=== PATIENT | male | born 1980 | race Two or more races ===

== ENCOUNTER 2016-07-28 16:47 | Inpatient (IN) | payer BC ==
[~2016-07-28] VITALS: Ht 170.2 cm; Wt 82.6 kg
[2016-07-28] MEDS ORDERED: NOREPINEPHRIN PREMIX 250 ML IV PRN (17:15)
[2016-07-28] MEDS ORDERED: IV NORMAL SALINE 500ML BAG 500 ML IV PRN (17:15)
[2016-07-28] MEDS: IV NORMAL SALINE 1000ML BAG 1,000 ML IV SCH ×3 (17:29→18:20)
[2016-07-28] MEDS ORDERED: IBUPROFEN 800 MG TABLET. PO ONE (17:30)
[2016-07-28] MEDS ORDERED: ACETAMINOPHEN 500 MG TABLET PO ONE (17:30)
[2016-07-28 17:44] LABS: CALCIUM 9.2 mg/dL (8.5-10.1); GFR 85.5; POTASSIUM 3.8 mmol/L (3.5-5.1)
[2016-07-28 17:55] LABS: BASO # 0.1 x10^3/uL (0.0-0.2); BASO % 1 % (0-3); EOS % 3 % (0-3); HEMATOCRIT 44.5 % (39.0-53.0); HEMOGLOBIN 15.4 g/dL (13.0-17.5); LYMPH # 1.9 x10^3/uL (1.0-4.8); LYMPH % 13 % (24-48); MEAN CORPUSCULAR HEMOGLOBIN 30 pg (25-35); MEAN CORPUSCULAR HGB CONC 35 g/dL (31-37); MEAN CORPUSCULAR VOLUME 88 fL (79-100); MONO % 6 % (0-9); NEUT % 78 % (31-73); PLATELET COUNT 312 x10^3/uL (140-400); RED BLOOD COUNT 5.08 x10^6/uL (4.30-5.70); RED CELL DISTRIBUTION WIDTH 12.3 % (11.5-14.5); WHITE BLOOD COUNT 14.8 x10^3/uL (4.0-11.0)
[2016-07-28 17:58] LABS: CKMB MASS < 0.5 ng/mL (0.0-3.6); CREATINE KINASE 154 U/L (39-308)
[2016-07-28] MEDS ORDERED: IV NORMAL SALINE 1000ML BAG 1,000 ML IV ONE ×2 (19:00→21:30)
--- NOTE | 2016-07-28 19:27 | PHYS DOC ---
Past Medical History Past Medical History: No Pertinent History Past Surgical History: No Surgical History Alcohol Use: None Drug Use: None Adult General Chief Complaint Chief Complaint: CHEST PAIN-NON CARDIAC NATURE HPI HPI Patient is a 36 year old male with no significant medical history who presents today with multiple complaints here and patient is complaining of generalized weakness, body aches, sore throat, bilateral ear pain with the ringing, headache , 7 out of 10 anterior chest pain on deep breaths, patient states all his symptoms began today. Patient denies his chest pain radiating anywhere. Patient is also complaining of subjective fevers. Review of Systems Review of Systems Constitutional: Generalized weakness Eyes: Denies change in visual acuity, redness, or eye pain [] HENT: Bilateral ear pain with the ringing and sore throat [] Respiratory: Denies cough or shortness of breath [] Cardiovascular: Anterior chest pain GI: Denies abdominal pain, nausea, vomiting, bloody stools or diarrhea [] : Denies dysuria or hematuria [] Musculoskeletal: Denies back pain or joint pain [] Integument: Denies rash or skin lesions [] Neurologic: Denies headache, focal weakness or sensory changes [] Endocrine: Denies polyuria or polydipsia [] Current Medications Current Medications Current Medications Medications (Trade) Dose Ordered Sig/Maciej Start Time Stop Time Status Last Admin Dose Admin Acetaminophen (Tylenol) 1,000 mg 1X ONCE 07/28/16 17:30 07/28/16 17:31 DC 07/28/16 17:29 1,000 MG Dobutamine HCl/ Dextrose 250 ml @ 0 mls/hr CONT PRN 07/28/16 17:15 Ibuprofen (Motrin) 800 mg 1X ONCE 07/28/16 17:30 07/28/16 17:31 DC 07/28/16 17:29 800 MG Levofloxacin/ Dextrose 100 ml @ 100 mls/hr 1X ONCE 07/28/16 19:00 07/28/16 19:59 DC 07/28/16 18:53 100 MLS/HR Norepinephrine Bitartrate 250 ml @ 0 mls/hr CONT PRN 07/28/16 17:15 Sodium Chloride 1,000 ml @ 1,000 mls/hr 1X ONCE 07/28/16 19:00 07/28/16 19:59 DC 07/28/16 18:53 1,000 MLS/HR Allergies Allergies Allergies Coded Allergies Type Severity Reaction Last Updated Verified No Known Drug Allergies 07/28/16 No Physical Exam Physical Exam Constitutional: Well developed, well nourished, no acute distress, non-toxic appearance. [] HENT: Normocephalic, atraumatic, bilateral external ears normal, oropharynx moist, no oral exudates, nose normal. [] Bilateral TM are moderately injected. Eyes: PERRLA, EOMI, conjunctiva normal, no discharge. [] Neck: Normal range of motion, no tenderness, supple, no stridor. [] Cardiovascular:Heart rate regular rhythm, no murmur no gallops, no rubs, reproducible chest pain on deep breaths Lungs & Thorax: Bilateral breath sounds clear to auscultation [] Abdomen: Bowel sounds normal, soft, no tenderness, no masses, no pulsatile masses. [] Skin: Warm, dry, no erythema, no rash. [] Back: No tenderness, no CVA tenderness. [] Extremities: No tenderness, no cyanosis, no clubbing, ROM intact, no edema. [] Neurologic: Alert and oriented X 3, normal motor function, normal sensory function, no focal deficits noted. [] Psychologic: Affect normal, judgement normal, mood normal. [] Current Patient Data Vital Signs Vital Signs Date Time Temp Pulse Resp B/P (MAP) Pulse Ox O2 Delivery O2 Flow Rate FiO2 07/28/16 20:24 106 20 116/66 (83) 94 Room Air 07/28/16 18:54 100.6 100.6 Lab Values Laboratory Tests Test 07/28/16 17:05 07/28/16 17:10 07/28/16 19:27 White Blood Count 14.8 x10^3/uL (4.0-11.0) H Red Blood Count 5.08 x10^6/uL (4.30-5.70) Hemoglobin 15.4 g/dL (13.0-17.5) Hematocrit 44.5 % (39.0-53.0) Mean Corpuscular Volume 88 fL (79-100) Mean Corpuscular Hemoglobin 30 pg (25-35) Mean Corpuscular Hemoglobin Concent 35 g/dL (31-37) Red Cell Distribution Width 12.3 % (11.5-14.5) Platelet Count 312 x10^3/uL (140-400) Neutrophils (%) (Auto) 78 % (31-73) H Lymphocytes (%) (Auto) 13 % (24-48) L Monocytes (%) (Auto) 6 % (0-9) Eosinophils (%) (Auto) 3 % (0-3) Basophils (%) (Auto) 1 % (0-3) Neutrophils # (Auto) 11.5 x10^3uL (1.8-7.7) H Lymphocytes # (Auto) 1.9 x10^3/uL (1.0-4.8) Monocytes # (Auto) 0.9 x10^3/uL (0.0-1.1) Eosinophils # (Auto) 0.4 x10^3/uL (0.0-0.7) Basophils # (Auto) 0.1 x10^3/uL (0.0-0.2) Sodium Level 136 mmol/L (136-145) Potassium Level 3.8 mmol/L (3.5-5.1) Chloride Level 98 mmol/L (98-107) Carbon Dioxide Level 25 mmol/L (21-32) Anion Gap 13 (6-14) Blood Urea Nitrogen 14 mg/dL (8-26) Creatinine 1.0 mg/dL (0.7-1.3) Estimated GFR (Cockcroft-Gault) 85.5 Glucose Level 101 mg/dL (70-99) H Calcium Level 9.2 mg/dL (8.5-10.1) Creatine Kinase 154 U/L (39-308) Creatine Kinase MB (Mass) < 0.5 ng/mL (0.0-3.6) Creatine Kinase MB Relative Index % (0-4) Troponin I Quantitative < 0.017 ng/mL (0.000-0.055) Procalcitonin < 0.10 ng/mL (0.00-0.10) Lactic Acid Level 1.9 mmol/L (0.4-2.0) Urine Collection Type Unknown Urine Color Yellow Urine Clarity Clear Urine pH 6.5 Urine Specific [place] <=1.005 Urine Protein Negative mg/dL (NEG-TRACE) Urine Glucose (UA) Negative mg/dL (NEG) Urine Ketones (Stick) Negative mg/dL (NEG) Urine Blood Trace (NEG) Urine Nitrite Negative (NEG) Urine Bilirubin Negative (NEG) Urine Urobilinogen Dipstick 0.2 mg/dL (0.2 mg/dL) Urine Leukocyte Esterase Negative (NEG) Urine RBC Occ /HPF (0-2) Urine WBC 0 /HPF (0-4) Urine Squamous Epithelial Cells Occ /LPF Urine Bacteria 0 /HPF (0-FEW) Laboratory Tests 07/28/16 17:05 Laboratory Tests 07/28/16 17:05 EKG EKG [] Radiology/Procedures Radiology/Procedures [] Course & Med Decision Making Course & Med Decision Making Pertinent Labs and Imaging studies reviewed. (See chart for details) This is a 36-year-old male patient who presents to the ED today with multiple complaints including bilateral ear pain with the ringing, sore throat, general weakness, body aches, chest pain, and headache. Vitals on arrival temperature was 100.2 heart rate 122 respiration 18, O2 sats 99% room air, heart pressure 141/92. Patient was started on the sepsis protocol with labs drawn including blood cultures and IV fluids. He was given Tylenol and Motrin. Chest x-ray interpreted by Dr. Nazario is negative for any acute findings. CBC with a WBC of 14.8. BMP with no acute findings. CK-MB troponin and lactic acid are normal. 16:[address] Nazario Sinus tachycardia, HR 122, QRS interval 86 no STEMI Patient continued to be tachycardic despite receiving 2 L of IV fluid. His temperature went up to 100.6 despite getting Tylenol and Motrin. We started him on Levaquin. He was also continued on IV fluid. 20:[address] Story who was accepted patient for admission. 20:[address] Carpenter who accepted patient for infectious disease. Dragon Disclaimer Dragon Disclaimer This electronic medical record was generated, in whole or in part, using a voice recognition dictation system. Departure Departure Impression: Primary Impression: Sepsis Additional Impressions: Fever Tachycardia Disposition: 09 ADMITTED INPATIENT Condition: STABLE Referrals: NO PCP (PCP) Problem Qualifiers Primary Impression: Sepsis Sepsis type: sepsis due to unspecified organism Qualified Codes: A41.9 - Sepsis, unspecified organism Additional Impressions: Fever Fever type: unspecified Qualified Codes: R50.9 - Fever, unspecified MUTUNGA,JASBIR FIELD SUPPORT REP Jul 28, 2016 19:27
[2016-07-28 19:34] LABS: BILIRUBIN,URINE NEGATIVE (NEG); GLUCOSE,URINE NEGATIVE (NEG); NITRITE,URINE NEGATIVE (NEG); PH,URINE 6.5; PROTEIN,URINE NEGATIVE (NEG-TRACE); UROBILINOGEN,URINE 0.2 mg/dL (0.2 mg/dL)
[2016-07-28 19:47] LABS: BACTERIA,URINE 0 /HPF (0-FEW); RBC,URINE OCC /HPF (0-2); SQUAMOUS EPITHELIAL CELL,UR OCC /LPF; WBC,URINE 0 /HPF (0-4)
[2016-07-28] MEDS ORDERED: ACETAMINOPHEN 325 MG TABLET. PO PRN (21:30)
[2016-07-28] MEDS ORDERED: MORPHINE SULFATE 2 MG/ML DISP.SYRIN. IV PRN (21:30)
[2016-07-28] MEDS ORDERED: IBUPROFEN 800 MG TABLET. PO PRN (21:30)
[2016-07-28] MEDS ORDERED: ONDANSETRON PF 4 MG/2 ML VIAL. IV PRN (21:30)
[2016-07-28] MEDS ORDERED: KETOROLAC TROMETHAMINE 30 MG/ML INJ. IV ONE (22:00)
[2016-07-28 22:04] LABS: OBC FLU VALID
[2016-07-28 22:17] VITALS: BP 129/80
[2016-07-29 03:16] VITALS: BP 108/74
--- NOTE | 2016-07-29 04:13 | ACF ---
Admission Forms Criteria SEPSIS and OTHER FEBRILE ILLNESS, W/O FOCAL INFECTION Clinical Indications for Admission to Inpatient Care ( Place 'X' for any and all applicable criteria): Admission is indicated for ANY ONE of the following (1)(2)(3)(4): [ ] I. Bacteremia [ ]II. Suspected or identified specific infection requiring hospitalization (eg, meningitis, endocarditis) [ ]III. Hemodynamic instability [ ]IV. Altered mental status [ ]V. Failure or unavailability of outpatient antimicrobial treatment [ ]. Hypoxemia [ ]VII. Seizures [ ]VIII. High-risk febrile neutropenia [ ]IX. Need for parenteral antibiotic in patient who is likely to abuse vascular access device (eg, injection drug user) [A](7) [ ]X. Temperature greater than 104.9 degrees F (40.5 degrees C) (oral) [X]XI. Inpatient admission required rather than observation care because of ANY ONE of the following: [ ]1) Specific infection identified that is too severe for outpatient treatment or observation care trial [ ]2) Metabolic disorder (eg, hypoglycemia, hyperglycemia, metabolic acidosis) that is severe or persistent [ ]3) Temperature greater than 103.1 degrees F (39.5 degrees C) ( oral) that is not responsive to observation care treatment [ ]4) IV fluid to replace significant ongoing (eg, for over 24 hours) losses (> 3 L/m2 per day) [ ]5) Supplemental oxygen or respiratory treatments for over 24 hours that is performable only in acute inpatient setting [ ]6) Parenteral nutrition regimen need that must be implemented on inpatient basis [ ]7) Strict or protective (eg, laminar flow) isolation [X]8) Other condition, treatment or monitoring requiring inpatient admission Extended stay beyond goal length of stay may be needed for(1)(3) [ ]a) Sepsis or septic shock(22) [ ]b) Positive blood cultures [ ]c) Insufficient oral intake [ ]d) High-risk febrile neutropenia(29)(30) [ ]e) Continued fever and clinical instability [ ]f) Clinically active comorbid illness (e.g,heart failure, renal failure , diabetes) The original [facility] content created by Sangeetha Montano has been revised. The portions of the content which have been revised are identified through the use of italic text or in bold, and Sangeetha Montano has neither reviewed nor approved the modified material. All other unmodified content is copyright [facility]. Please see references footnoted in the original [facility] edition 2016 Admission Criteria Met?: Yes MICHAEL ESCAMILLA Jul 29, 2016 04:12
[2016-07-29 05:04] LABS: BASO # 0.1 x10^3/uL (0.0-0.2); BASO % 1 % (0-3); EOS % 4 % (0-3); HEMATOCRIT 41.6 % (39.0-53.0); HEMOGLOBIN 14.4 g/dL (13.0-17.5); LYMPH # 2.2 x10^3/uL (1.0-4.8); LYMPH % 21 % (24-48); MEAN CORPUSCULAR HEMOGLOBIN 31 pg (25-35); MEAN CORPUSCULAR HGB CONC 35 g/dL (31-37); MEAN CORPUSCULAR VOLUME 89 fL (79-100); MONO % 9 % (0-9); NEUT % 65 % (31-73); PLATELET COUNT 256 x10^3/uL (140-400); RED BLOOD COUNT 4.68 x10^6/uL (4.30-5.70); RED CELL DISTRIBUTION WIDTH 12.5 % (11.5-14.5); WHITE BLOOD COUNT 10.3 x10^3/uL (4.0-11.0)
[2016-07-29 05:33] LABS: CALCIUM 8.2 mg/dL (8.5-10.1); CREATININE 0.9 mg/dL (0.7-1.3); GFR 96.6; POTASSIUM 3.8 mmol/L (3.5-5.1)
--- NOTE | 2016-07-29 06:34 | EKG ---
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
[2016-07-29 07:00] VITALS: BP 134/86
[2016-07-29 07:25] LABS: NEGATIVE OBC STREP NEG; POSITIVE OBC STREP POS
[2016-07-29] MEDS ORDERED: IPRATRPIUM/ALBUTEROL 0.5/2.5MG 3 ML NEBU. NEB SCH (08:00)
--- NOTE | 2016-07-29 08:09 | RAD ---
Indication cough. Chest pain. A single view of the chest was obtained. No prior imaging is available. Heart size is normal. The mediastinum is normal. No definite acute parenchymal infiltrate is seen. There is a density at the left lung base. This likely reflects a pericardial fat pad. A focus of scarring or atelectasis is felt less likely.. There is no significant pleural fluid. There is no pneumothorax. IMPRESSION: No acute or focal process is seen in the chest. Probable pericardial fat pad.
--- NOTE | 2016-07-29 08:24 | PDOC ---
Infectious Disease Note Vital Sign Vital Signs Vital Signs Date Time Temp Pulse Resp B/P (MAP) Pulse Ox O2 Delivery O2 Flow Rate FiO2 07/29/16 07:40 96 Room Air 07/29/16 07:00 97.9 86 18 134/86 (102) 97.9 Labs Lab Laboratory Tests Test 07/28/16 17:05 07/28/16 17:10 07/28/16 17:55 07/28/16 19:27 White Blood Count 14.8 x10^3/uL (4.0-11.0) Red Blood Count 5.08 x10^6/uL (4.30-5.70) Hemoglobin 15.4 g/dL (13.0-17.5) Hematocrit 44.5 % (39.0-53.0) Mean Corpuscular Volume 88 fL (79-100) Mean Corpuscular Hemoglobin 30 pg (25-35) Mean Corpuscular Hemoglobin Concent 35 g/dL (31-37) Red Cell Distribution Width 12.3 % (11.5-14.5) Platelet Count 312 x10^3/uL (140-400) Neutrophils (%) (Auto) 78 % (31-73) Lymphocytes (%) (Auto) 13 % (24-48) Monocytes (%) (Auto) 6 % (0-9) Eosinophils (%) (Auto) 3 % (0-3) Basophils (%) (Auto) 1 % (0-3) Neutrophils # (Auto) 11.5 x10^3uL (1.8-7.7) Lymphocytes # (Auto) 1.9 x10^3/uL (1.0-4.8) Monocytes # (Auto) 0.9 x10^3/uL (0.0-1.1) Eosinophils # (Auto) 0.4 x10^3/uL (0.0-0.7) Basophils # (Auto) 0.1 x10^3/uL (0.0-0.2) Sodium Level 136 mmol/L (136-145) Potassium Level 3.8 mmol/L (3.5-5.1) Chloride Level 98 mmol/L (98-107) Carbon Dioxide Level 25 mmol/L (21-32) Anion Gap 13 (6-14) Blood Urea Nitrogen 14 mg/dL (8-26) Creatinine 1.0 mg/dL (0.7-1.3) Estimated GFR (Cockcroft-Gault) 85.5 Glucose Level 101 mg/dL (70-99) Calcium Level 9.2 mg/dL (8.5-10.1) Creatine Kinase 154 U/L (39-308) Creatine Kinase MB (Mass) < 0.5 ng/mL (0.0-3.6) Creatine Kinase MB Relative Index % (0-4) Troponin I Quantitative < 0.017 ng/mL (0.000-0.055) Procalcitonin < 0.10 ng/mL (0.00-0.10) Lactic Acid Level 1.9 mmol/L (0.4-2.0) Group A Streptococcus Rapid Negative (NEGATIVE) Urine Collection Type Unknown Urine Color Yellow Urine Clarity Clear Urine pH 6.5 Urine Specific [place] <=1.005 Urine Protein Negative mg/dL (NEG-TRACE) Urine Glucose (UA) Negative mg/dL (NEG) Urine Ketones (Stick) Negative mg/dL (NEG) Urine Blood Trace (NEG) Urine Nitrite Negative (NEG) Urine Bilirubin Negative (NEG) Urine Urobilinogen Dipstick 0.2 mg/dL (0.2 mg/dL) Urine Leukocyte Esterase Negative (NEG) Urine RBC Occ /HPF (0-2) Urine WBC 0 /HPF (0-4) Urine Squamous Epithelial Cells Occ /LPF Urine Bacteria 0 /HPF (0-FEW) Test 07/28/16 21:39 07/28/16 23:13 07/29/16 03:45 Influenza Type A Antigen Negative (NEGATIVE) Influenza Type B Antigen Negative (NEGATIVE) Lactic Acid Level 2.1 mmol/L (0.4-2.0) White Blood Count 10.3 x10^3/uL (4.0-11.0) Red Blood Count 4.68 x10^6/uL (4.30-5.70) Hemoglobin 14.4 g/dL (13.0-17.5) Hematocrit 41.6 % (39.0-53.0) Mean Corpuscular Volume 89 fL (79-100) Mean Corpuscular Hemoglobin 31 pg (25-35) Mean Corpuscular Hemoglobin Concent 35 g/dL (31-37) Red Cell Distribution Width 12.5 % (11.5-14.5) Platelet Count 256 x10^3/uL (140-400) Neutrophils (%) (Auto) 65 % (31-73) Lymphocytes (%) (Auto) 21 % (24-48) Monocytes (%) (Auto) 9 % (0-9) Eosinophils (%) (Auto) 4 % (0-3) Basophils (%) (Auto) 1 % (0-3) Neutrophils # (Auto) 6.7 x10^3uL (1.8-7.7) Lymphocytes # (Auto) 2.2 x10^3/uL (1.0-4.8) Monocytes # (Auto) 1.0 x10^3/uL (0.0-1.1) Eosinophils # (Auto) 0.4 x10^3/uL (0.0-0.7) Basophils # (Auto) 0.1 x10^3/uL (0.0-0.2) Sodium Level 143 mmol/L (136-145) Potassium Level 3.8 mmol/L (3.5-5.1) Chloride Level 107 mmol/L (98-107) Carbon Dioxide Level 28 mmol/L (21-32) Anion Gap 8 (6-14) Blood Urea Nitrogen 13 mg/dL (8-26) Creatinine 0.9 mg/dL (0.7-1.3) Estimated GFR (Cockcroft-Gault) 96.6 Glucose Level 87 mg/dL (70-99) Calcium Level 8.2 mg/dL (8.5-10.1) Troponin I Quantitative < 0.017 ng/mL (0.000-0.055) Objective Assessment Fever Leukocytosis Body ache ? early sepsis Plan Plan of Care fluids levaquin supportive care check cultures TAM GASTON MD Jul 29, 2016 08:24
[2016-07-29 11:00] VITALS: BP 125/82
[2016-07-29] MEDS ORDERED: IPRATRPIUM/ALBUTEROL 0.5/2.5MG 3 ML NEBU. NEB PRN (12:00)
--- NOTE | 2016-07-29 12:21 | CONS ---
DATE OF CONSULTATION: 07/29/2016 REQUESTING PHYSICIAN: Jenelle Story DO. REASON FOR CONSULTATION: Early sepsis. HISTORY OF PRESENT ILLNESS: This is a 36-year-old gentleman who came in with 1-day history of not feeling well. In the morning, he woke up with sore throat, body ache, he still went to work and then it got worse progressively. The patient had fever when he came in. The patient had leukocytosis, slight lactic acidosis. The patient was admitted. Fluids and Levaquin was started. The patient had a fever up to 100.6, leukocytosis, slight lactic acidosis and admitted as I mentioned. The patient this morning is eating; he is feeling better. Denies any nausea, vomiting, denies any diarrhea, denies any headache, visual symptoms. Denies any chest pain, shortness of breath, abdominal pain, urinary symptoms. PAST MEDICAL HISTORY: Unremarkable. SOCIAL HISTORY: Negative for smoking, alcohol, illicit drug use. ALLERGIES: No known drug allergies. CURRENT MEDICATIONS: The patient is on levofloxacin. REVIEW OF SYSTEMS: As per HPI, all other systems reviewed are negative. SOCIAL HISTORY: The patient denies any tick bite, mosquito bite, does not do anything out door. PHYSICAL EXAMINATION: GENERAL: Alert and oriented gentleman, not in distress. VITAL SIGNS: Stable with a T-max 100.6. Now he has been afebrile. HEENT: NAD. NECK: Supple, no JVP, no lymphadenopathy. LUNGS: Clear. HEART: S1, S2 regular. ABDOMEN: Benign. EXTREMITIES: No edema, cyanosis. SKIN: Unremarkable. NEUROLOGIC: The patient is neurologically intact. LABORATORY DATA: White count on admission was 14.8, now down to 10.3. BUN and creatinine is negative. Urinalysis unremarkable. Influenza screen is negative. Group A strep is negative. Chest x-ray is negative. IMPRESSION: 1. Fever. 2. Leukocytosis. 3. Slight lactic acidosis. 4. Body aches. PLAN: Recommend fluids, levofloxacin. The patient can soon be discharged. We will check the cultures and ____. Thank you very much, Dr. Story for giving me the opportunity to participate in this patient's care. TAM GASTON MD DR: DAKOTAH/az JOB#: [id number] / [id number]
[2016-07-29 15:00] VITALS: BP 127/80
[2016-07-29] MEDS ORDERED: LEVO500T59 PO (16:09)
--- NOTE | 2016-07-29 22:23 | SSS ---
ADMIT DATE: 07/29/2016 CHIEF COMPLAINT: Noncardiac chest pain. HISTORY OF PRESENT ILLNESS: The patient is a 36-year-old gentleman without any significant past medical history who presented to the Emergency Room with generalized weakness, myalgia, sore throat, bilateral ear pain and ringing as well as headaches 08/30. He also complained of anterior chest pain, worsened on deep breathing. All symptoms essentially started today, accompanied by subjective fevers. He denies any nausea, vomiting or other GI symptoms. PAST MEDICAL HISTORY: None. FAMILY HISTORY: Noncontributory. SOCIAL HISTORY: Lives with his family. No toxic habits. ALLERGIES: No known drug allergies. HOME MEDICATIONS: None. REVIEW OF SYSTEMS: As per HPI. This morning, he actually feels much improved. Denies any further chest pain, dizziness has resolved, minimal soreness in the throat, but otherwise feels fine. Rest of organ system review is negative. PHYSICAL EXAMINATION: VITAL SIGNS: From today show a blood pressure of 127/80, heart rate of 85, respiratory rate at 18. He is afebrile. GENERAL: This is a well-nourished, well-developed 36-year-old gentleman, alert and oriented, in no acute distress. HEENT: Shows no scleral icterus. Oral mucosa is pink and moist without any erythema noted in the throat. NECK: Supple without any lymphadenopathy. LUNGS: Clear. HEART: Has regular rate and rhythm. ABDOMEN: Has positive bowel sounds, soft, nontender. EXTREMITIES: Show no edema. SKIN: Warm, soft and dry without any rash. LABORATORY DATA: CBC from this morning shows WBC of 10.3, compared to 14.8 last evening, hemoglobin at 14.4, platelets at 256. Chemistries: Normal BUN, creatinine and electrolytes. Serology for flu A and B was negative. IMAGING STUDIES: Chest x-ray obtained in the Emergency Room reveals no acute focal process in the chest. HOSPITAL COURSE: The patient is a 36-year-old gentleman presenting with what appears to be a viral syndrome. He is now much improved. He is almost asymptomatic. I will discharge him from the hospital. Discussed use of antibiotics with him. We will give him 4 more days of Levaquin for potential bacterial superinfection. No other medications indicated at this time. A work excuse until next Tuesday was given. DISCHARGE DATE: 07/29/2016. DISCHARGE DIAGNOSIS: Viral syndrome DISCHARGE DISPOSITION: To home. DISCHARGE CONDITION: Improved. DISCHARGE MEDICATIONS: Please refer to MAR. DISCHARGE INSTRUCTIONS: The patient will follow up with PCP in 1-2 weeks. YANG CHARLES MD DR: UR/nts JOB#: [id number] / [id number] MARIELA
== END 2016-07-29 17:07 | disposition home or self-care (01) | DRG 872 ==
LOC: ER 16:47 → 5 NORTH 20:39
PROVIDERS: ADMIT Internal Medicine; ATTEND Internal Medicine
DX: A41.9 Sepsis, unspecified organism (principal); B34.9 Viral infection, unspecified; R00.0 Tachycardia, unspecified; R07.89 Other chest pain
CPT/HCPCS: 36415; 71010; 80048; 81001; 82553; 83605; 84145; 84484; 85027; 87040; 87070; 87804; 87880; 93005; 94250; 94640; 94760; 96365; J1885; J1956; J7030; J7620; 99285-25

== ENCOUNTER 2018-08-21 21:09 | Emergency (ER) | payer BC ==
[~2018-08-21] VITALS: Ht 170.2 cm; Wt 85.7 kg
[~2018-08-21 21:09] MED LIST: LEVO500T59 PO
--- NOTE | 2018-08-21 21:47 | PHYS DOC ---
Past Medical History Past Medical History: No Pertinent History Past Surgical History: No Surgical History Alcohol Use: None Drug Use: None Adult General Chief Complaint Chief Complaint: ANKLE PROBLEM HPI HPI Patient is a 38 year old male who presents with plain soccer tonight when he was running and stepped on the ball causing his right ankle supinate rolling ankle outward. Patient also has pain at lower tib fib. Pain is sharp and aches at a 10/10. Review of Systems Review of Systems Constitutional: Denies fever or chills [] Eyes: Denies change in visual acuity, redness, or eye pain [] HENT: Denies nasal congestion or sore throat [] Respiratory: Denies cough or shortness of breath [] Cardiovascular: No additional information not addressed in HPI [] GI: Denies abdominal pain, nausea, vomiting, bloody stools or diarrhea [] : Denies dysuria or hematuria [] Musculoskeletal: Right ankle and tib fib pain. Denies back pain or joint pain [] Integument: Denies rash or skin lesions [] Neurologic: Denies headache, focal weakness or sensory changes [] Endocrine: Denies polyuria or polydipsia [] All other systems were reviewed and found to be within normal limits, except as documented in this note. Current Medications Current Medications Current Medications Medications (Trade) Dose Ordered Sig/Maciej Start Time Stop Time Status Last Admin Dose Admin Acetaminophen/ Hydrocodone Bitart (Lortab 5/325) 1 tab 1X ONCE 08/21/18 22:15 08/21/18 22:16 DC 08/21/18 21:41 1 TAB Ibuprofen (Motrin) 600 mg 1X ONCE 08/21/18 22:15 08/21/18 22:16 DC 08/21/18 21:41 600 MG Allergies Allergies Allergies Coded Allergies Type Severity Reaction Last Updated Verified No Known Drug Allergies 07/28/16 No Physical Exam Physical Exam Constitutional: Well developed, well nourished, no acute distress, non-toxic appearance. [] HENT: Normocephalic, atraumatic, bilateral external ears normal, oropharynx moist, no oral exudates, nose normal. [] Eyes: PERRLA, EOMI, conjunctiva normal, no discharge. [] Neck: Normal range of motion, no tenderness, supple, no stridor. [] Cardiovascular:Heart rate regular rhythm, no murmur [] Lungs & Thorax: Bilateral breath sounds clear to auscultation [] Abdomen: Bowel sounds normal, soft, no tenderness, no masses, no pulsatile masses. [] Skin: Warm, dry, no erythema, no rash. [] Back: No tenderness, no CVA tenderness. [] Extremities: Right fibula and right ankle tenderness, no cyanosis, no clubbing, Right ankle ROM not intact, 3+ edema to right ankle. swelling and tenderness to lower portion of fibula. [] Neurologic: Alert and oriented X 3, normal motor function, normal sensory function, no focal deficits noted. [] Psychologic: Affect normal, judgement normal, mood normal. [] Current Patient Data Vital Signs Vital Signs Date Time Temp Pulse Resp B/P (MAP) Pulse Ox O2 Delivery O2 Flow Rate FiO2 08/21/18 21:59 97.9 76 16 131/86 (101) 97 Room Air 97.9 EKG EKG [] Radiology/Procedures Radiology/Procedures [] Course & Med Decision Making Course & Med Decision Making Patient is a 38 year old male who presents with playing soccer tonight when he was running and stepped on the ball causing his right ankle supinate rolling ankle outward. Patient also has pain at lower tib fib. Pain is sharp and aches at a 10/10. Inner and outer calcaneus is 3+ swollen without bruising or deformity see. Patient has swelling or slight deformity to lower portion of fibula and it is tender to palpate. Patient can slightly rotate at the ankle but its painful and limited due to swelling. Pedal pulse present. Cap refill < 3 seconds. Patient is given Tionesta and Ibuprofen in the ED. Patient is unable to put pressure on the right extremity due to pain. Xray shows a slightly displace distal fibula fracture. A stirrup splint is placed. Cap refill and circulation is maintained. Patient is given crutches and to call Orthopedic clinic in the morning for follow up appointment. Ayana Disclaimer Dragon Disclaimer This electronic medical record was generated, in whole or in part, using a voice recognition dictation system. Departure Departure Impression: Primary Impression: Fibula fracture Disposition: HOME, SELF-CARE Condition: STABLE Referrals: NO PCP (PCP) HUMBERTO IGNACIO II, MD Patient Instructions: Fibular Fracture, Ankle, Adult, Undisplaced, Treated with Immobilization Additional Instructions: Call orthopedic office in the morning. Take medications as prescribed. Use ice and elevation to reduce swelling and pain. Scripts Ibuprofen (IBUPROFEN) 600 Mg Tablet 600 MG PO PRN Q6HRS PRN for INFLAMMATION, #20 TAB Prov: AMY HOLDEN APRN 08/21/18 Hydrocodone/Apap 5-325 (NORCO 5-325 TABLET) 1 Each Tablet 1 TAB PO PRN Q6HRS PRN for PAIN, #10 TAB 0 Refills Prov: MAY HOLDEN APRN 08/21/18 Problem Qualifiers Primary Impression: Fibula fracture Encounter type: initial encounter Fibula location: distal Fracture type: closed Fracture morphology: unspecified fracture morphology Laterality: right Qualified Codes: S82.831A - Other fracture of upper and lower end of right fibula, initial encounter for closed fracture AMY HOLDEN APRN Aug 21, 2018 21:47
[2018-08-21 21:59] VITALS: BP 131/86
[2018-08-21] MEDS ORDERED: HYDROcodone/APAP 5/325MG 1 TAB TABLET PO ONE (22:15)
[2018-08-21] MEDS ORDERED: IBUPROFEN 200 MG TABLET. PO ONE (22:15)
[2018-08-21] MEDS ORDERED: HYDR-3164 PO (22:44)
[2018-08-21] MEDS ORDERED: IBUP-1007 PO (22:44)
--- NOTE | 2018-08-22 00:36 | RAD ---
AP and lateral right tibia and fibula radiographs to include 3 view radiographs of the right ankle 08/21/2018 CLINICAL HISTORY: Ankle and leg pain post fall. AP and lateral radiographs of the right tibia and fibula were obtained. AP, lateral and oblique digital radiographs of the right ankle were obtained. An acute comminuted oblique fracture of the distal diaphysis of the right fibula is seen fracture which is approximately 6 cm superior to the inferior aspect of the lateral malleolus. The distal right fibular fracture fragment is minimally displaced laterally. Soft tissue swelling surrounds the medial and lateral malleolus of the right ankle. There appears to be essentially nondisplaced acute fracture of the posterior malleolus of the right ankle. There is a right ankle joint effusion. No additional fracture is seen. IMPRESSION: Acute comminuted fracture of the distal diaphysis of the right fibula. There appears to be a nondisplaced fracture of the posterior malleolus of the distal right tibial metaphysis. Electronically signed by: Russ Harp MD (08/22/2018 12:33 AM) [facility]
== END 2018-08-21 23:05 | disposition home or self-care (01) ==
LOC: ER 21:09
DX: S82.831A Other fracture of upper and lower end of right fibula, initial encounter for closed fracture (principal); X50.1XXA Overexertion from prolonged static or awkward postures, initial encounter; Y93.66 Activity, soccer; Y92.89 Other specified places as the place of occurrence of the external cause; Y99.8 Other external cause status
CPT/HCPCS: 29515; 73590; 73610; 99284